=== PATIENT | female | born 1975 | race Caucasian/White ===

== ENCOUNTER 2020-10-05 18:29 | Inpatient (IN) | payer BC ==
[~2020-10-05] VITALS: Ht 165.1 cm; Wt 56.7 kg
--- NOTE | 2020-10-05 19:05 | NUR ---
Patient received in bed with at her side. AAOX4, calm and cooperative. In no acute distress. Complaining of abdominal discomforts, bloating sensation above the stoma, intermittent mild pain to right lower abdomen and constant tightning sensation to left lower. pain is 3/10. Denies any N/V/D. Stoma is red, clean and intact.
--- NOTE | 2020-10-05 19:15 | Emergency Room Report ---
History of Present Illness General Chief Complaint: General Complaint Source: Patient Present Illness HPI Disclaimer: Please note that this report is being documented using [employer] technology. This can lead to erroneous entry secondary to incorrect interpretation by the dictating instrument. HPI: Is a 44-year-old female history of ulcerative colitis status post total colectomy now with Eddy pouch presenting for difficulty with pouch. Unable to intubate pouch over the past 3 months. Worsening. Denies abdominal pain currently. Was able to intubate this morning. Tube appears to be getting kinked once passing and through the valve. Denies fever, chills, nausea, vomiting or other complaints at this time. Sent in for surgical evaluation. Originally placed at [facility] and then revised at [facility]. 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 EOMI. Cardiovascular: RRR. S1 and S2 normal. No murmur appreciated Resp: Normal work of breathing. No cough, wheezing or crackles appreciated Abdomen: Abdomen is soft, nondistended. Nontender Skin: Ostomy in the right lower quadrant is clean, no signs of surrounding erythema, edema or signs of infection. MSK: Normal tone and bulk. Moving all extremities. No obvious deformity. Neuro: Awake and alert. Mentating appropriately. Medical Decision Making Diagnostic Impression: Primary Impression: Ileostomy dysfunction ER Course Is a 44-year-old female presenting for evaluation of malfunctioning Eddy pouch. Patient will be admitted to with Dr. Shin surgical consult. Will obtain preop labs and CT. Patient stable. Laboratory Tests Test 10/05/20 19:12 10/05/20 20:10 10/06/20 07:25 10/07/20 03:45 White Blood Count 8.9 K/UL (4.8-10.8) 6.5 K/UL (4.8-10.8) 4.5 K/UL (4.8-10.8) L Red Blood Count 4.64 M/UL (4.20-5.40) 4.31 M/UL (4.20-5.40) 4.33 M/UL (4.20-5.40) Hemoglobin 15.4 G/DL (12.0-16.0) 14.2 G/DL (12.0-16.0) 14.1 G/DL (12.0-16.0) Hematocrit 47.5 % (37.0-47.0) H 42.7 % (37.0-47.0) 42.8 % (37.0-47.0) Mean Corpuscular Volume 102 FL (80-99) H 99 FL (80-99) 99 FL (80-99) Mean Corpuscular Hemoglobin 33.1 PG (27.0-31.0) H 33.0 PG (27.0-31.0) H 32.6 PG (27.0-31.0) H Mean Corpuscular Hemoglobin Concent 32.4 G/DL (32.0-36.0) 33.3 G/DL (32.0-36.0) 33.0 G/DL (32.0-36.0) Red Cell Distribution Width 13.0 % (11.6-14.8) 12.9 % (11.6-14.8) 12.7 % (11.6-14.8) Platelet Count 298 K/UL (150-450) 241 K/UL (150-450) 248 K/UL (150-450) Mean Platelet Volume 7.9 FL (6.5-10.1) 7.5 FL (6.5-10.1) 7.6 FL (6.5-10.1) Neutrophils (%) (Auto) 61.5 % (45.0-75.0) 69.1 % (45.0-75.0) 57.2 % (45.0-75.0) Lymphocytes (%) (Auto) 27.4 % (20.0-45.0) 18.3 % (20.0-45.0) L 28.9 % (20.0-45.0) Monocytes (%) (Auto) 9.0 % (1.0-10.0) 10.3 % (1.0-10.0) H 10.9 % (1.0-10.0) H Eosinophils (%) (Auto) 0.9 % (0.0-3.0) 0.8 % (0.0-3.0) 1.6 % (0.0-3.0) Basophils (%) (Auto) 1.3 % (0.0-2.0) 1.5 % (0.0-2.0) 1.4 % (0.0-2.0) Prothrombin Time 10.0 SEC (9.30-11.50) 10.7 SEC (9.30-11.50) Prothrombin Time INR 0.9 (0.9-1.1) 1.0 (0.9-1.1) Activated Partial Thromboplast Time 23 SEC (23-33) 27 SEC (23-33) Sodium Level 141 MMOL/L (136-145) 143 MMOL/L (136-145) 145 MMOL/L (136-145) Potassium Level 3.8 MMOL/L (3.5-5.1) 3.8 MMOL/L (3.5-5.1) 4.2 MMOL/L (3.5-5.1) Chloride Level 105 MMOL/L (98-107) 108 MMOL/L (98-107) H 111 MMOL/L (98-107) H Carbon Dioxide Level 29 MMOL/L (21-32) 24 MMOL/L (21-32) 26 MMOL/L (21-32) Anion Gap 7 mmol/L (5-15) 11 mmol/L (5-15) 8 mmol/L (5-15) Blood Urea Nitrogen 9 mg/dL (7-18) 5 mg/dL (7-18) L 3 mg/dL (7-18) L Creatinine 0.8 MG/DL (0.55-1.30) 0.7 MG/DL (0.55-1.30) 0.7 MG/DL (0.55-1.30) Estimated Glomerular Filtration Rate > 60 mL/min (>60) > 60 mL/min (>60) > 60 mL/min (>60) Glucose Level 98 MG/DL (74-106) 102 MG/DL (74-106) 88 MG/DL (74-106) Calcium Level 8.6 MG/DL (8.5-10.1) 8.5 MG/DL (8.5-10.1) 8.4 MG/DL (8.5-10.1) L Total Bilirubin 0.6 MG/DL (0.2-1.0) 0.6 MG/DL (0.2-1.0) 0.5 MG/DL (0.2-1.0) Aspartate Amino Transferase (AST) 13 U/L (15-37) L 13 U/L (15-37) L 16 U/L (15-37) Alanine Aminotransferase (ALT) 17 U/L (12-78) 17 U/L (12-78) 18 U/L (12-78) Alkaline Phosphatase 57 U/L (46-116) 48 U/L (46-116) 50 U/L (46-116) Troponin I 0.000 ng/mL (0.000-0.056) Total Protein 7.0 G/DL (6.4-8.2) 6.3 G/DL (6.4-8.2) L 6.4 G/DL (6.4-8.2) Albumin 3.9 G/DL (3.4-5.0) 3.5 G/DL (3.4-5.0) 3.5 G/DL (3.4-5.0) Globulin 3.1 g/dL 2.8 g/dL 2.9 g/dL Albumin/Globulin Ratio 1.3 (1.0-2.7) 1.2 (1.0-2.7) 1.2 (1.0-2.7) Hemoglobin A1c 5.2 % (4.3-6.0) Pro-B-Type Natriuretic Peptide 74 pg/mL (0-125) Triglycerides Level 76 MG/DL (30-150) Cholesterol Level 148 MG/DL (< 200) LDL Cholesterol 66 mg/dL (<100) HDL Cholesterol 70 MG/DL (40-60) H Cholesterol/HDL Ratio 2.1 (3.3-4.4) L Thyroid Stimulating Hormone (TSH) 2.440 uiU/mL (0.358-3.740) EKG Diagnostic Results Troponin ordered: Yes When was troponin ordered?: Oct 05, 2020 EKG Time: 19:07 Rate: normal Rhythm: NSR ST Segments: no acute changes Other Impression Sinus rhythm, normal axis, normal intervals, no ST segment changes Rhythm Strip Diag. Results Rhythm Strip Time: 19:07 EP Interpretation: yes Rate: 70s Rhythm: NSR, no PVC's, no ectopy Last Vital Signs Date Time Temp Pulse Resp B/P (MAP) Pulse Ox O2 Delivery O2 Flow Rate FiO2 10/05/20 18:37 98.1 75 16 120/87 (98) 99 Room Air Disposition: ADMITTED INPATIENT Condition: Stable Referrals: Jose Shin (PCP) Maikol Garcia MD Oct 05, 2020 19:15
[2020-10-05 19:23] LABS: BASOPHILS % (AUTO) 1.3 % (0.0-2.0); EOSINOPHILS % (AUTO) 0.9 % (0.0-3.0); HEMATOCRIT 47.5 % (37.0-47.0); HEMOGLOBIN 15.4 G/DL (12.0-16.0); LYMPHOCYTES % (AUTO) 27.4 % (20.0-45.0); MEAN CORPUSCULAR VOLUME 102 FL (80-99); NEUTROPHILS % (AUTO) 61.5 % (45.0-75.0); PLATELET COUNT 298 K/UL (150-450); RED BLOOD COUNT 4.64 M/UL (4.20-5.40); WHITE BLOOD COUNT 8.9 K/UL (4.8-10.8)
[2020-10-05 19:39] LABS: INR 0.9 (0.9-1.1)
[2020-10-05] MEDS ORDERED: Omnipaque-300 100ml vial INJ PRN (19:45)
[2020-10-05] MEDS ORDERED: HYDROMORPHONE HC2 M1 ORAL (19:51)
[2020-10-05] MEDS ORDERED: LORazepam 1mg tab ORAL PRN (20:00)
[2020-10-05] MEDS ORDERED: LORazepam Inj 2mg/ml 1ml IV ONE ×2 (20:00→21:45)
[2020-10-05] MEDS ORDERED: Morphine Sulfate 2mg/ml Inj(IV/IM USE ONLY) IVP PRN (20:00)
[2020-10-05] MEDS ORDERED: Mylanta II UD 30ml ORAL PRN (20:00)
--- NOTE | 2020-10-05 20:05 | Consultation ---
History of Present Illness General Date patient seen: Oct 05, 2020 Reason for Hospitalization: General Complaint Present Illness HPI This is a very pleasant 44-year-old female who presents with her to [facility] emergency department complaining of recent acute wors ening intubation of her Eddy pouch. Patient states 17 to 20 years ago she had a subtotal colectomy for what it was believed at that time to be colonic inertia with a ileorectal anastomosis which failed requiring a J-pouch which later required a diverting ostomy which continues to have issue who is leading to a APR and k-pouch creation. States this was done around 2013 and she has been well since with only few episodes of bowel obstructions throughout the years some requiring operation some treated nonoperatively. States she has been told she has gastroparesis and delayed gastric emptying as well along with delayed bowel transit. 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 She has been to multiple facilities throughout the years and has recently found our facility for evaluation of her recent pouch issues. States she is barely able to get the catheter and without some angulation the cause discomfort used to be able to sit down and intubate her pouch now has to lay flat and intubate her pouch. States few episodes where she can even intubate her pouch needs to take a break and intubate later currently intubated approximately 6 times a day. States the output is about 2 to 300 cc liquid output. Currently no nausea vomiting for the fever or chills. Allergies: Coded Allergies: DIPHENHYDRAMINE (Verified Allergy, Unknown, 10/05/20) GABAPENTIN (Verified Allergy, Unknown, 10/05/20) METOCLOPRAMIDE (Verified Allergy, Unknown, 10/05/20) ONDANSETRON (Verified Allergy, Unknown, 10/05/20) PROCHLORPERAZINE (Verified Allergy, Unknown, 10/05/20) COVID-19 Screening Contact w/high risk pt: No Experienced COVID-19 symptoms?: No Medication History Scheduled PRN Hydromorphone Hcl (Hydromorphone Hcl), 2 MG ORAL THREE TIMES A DAY PRN for For Pain, (Reported) Patient History History Provided By: Patient, Medical Record Healthcare decision maker Resuscitation status Advanced Directive on File Past Medical/Surgical History Past Medical/Surgical History: (1) Ileostomy dysfunction (2) Pouch malfunction Review of Systems Review of Symptoms General ROS: no weight loss or fever Psychological ROS: no depression or mood changes, no memory loss Ophthalmic ROS: no visual changes or eye irritation ENT ROS: no nasal congestion, hearing loss, dizziness Allergy and Immunology ROS: no allergic symptoms or urticaria Hematological and Lymphatic ROS: no swollen glands, unusual bleeding or bruising Endocrine ROS: no polyuria, polydipsia, weight changes, temperature intolerance Respiratory ROS: no cough, shortness of breath, or wheezing Cardiovascular ROS: no chest pain or dyspnea on exertion Gastrointestinal ROS: denies abdominal pain, bright red blood in stool. Musculoskeletal ROS: no myalgias or arthralgias Neurological ROS: no TIA or stroke symptoms Dermatological ROS: no new or changing skin lesions, rashes or pruritis Physical Exam Physical Exam General appearance: alert, cooperative, no distress, appears stated age Head: Normocephalic, without obvious abnormality, atraumatic Eyes: conjunctivae/corneas clear. PERRL, EOM's intact. Fundi benign Throat: Lips, mucosa, and tongue normal. Teeth and gums normal Neck: supple, symmetrical, trachea midline, no adenopathy, thyroid: not enlarged, symmetric, no tenderness/mass/nodules, no carotid bruit and no JVD Lungs: clear to auscultation bilaterally Heart: regular rate and rhythm, S1, S2 normal, no murmur, click, rub or gallop Abdomen: soft, non-tender. Bowel sounds normal. No masses, no organomegaly RLQ ostomy site Extremities: extremities normal, atraumatic, no cyanosis or edema Pulses: 2+ and symmetric Skin: Skin color, texture, turgor normal. No rashes or lesions Neurologic: Grossly normal Last 24 Hour Vital Signs Date Time Temp Pulse Resp B/P (MAP) Pulse Ox O2 Delivery O2 Flow Rate FiO2 10/05/20 18:37 98.1 75 16 120/87 (98) 99 Room Air Laboratory Tests Test 10/05/20 19:12 White Blood Count 8.9 K/UL (4.8-10.8) Red Blood Count 4.64 M/UL (4.20-5.40) Hemoglobin 15.4 G/DL (12.0-16.0) Hematocrit 47.5 % (37.0-47.0) H Mean Corpuscular Volume 102 FL (80-99) H Mean Corpuscular Hemoglobin 33.1 PG (27.0-31.0) H Mean Corpuscular Hemoglobin Concent 32.4 G/DL (32.0-36.0) Red Cell Distribution Width 13.0 % (11.6-14.8) Platelet Count 298 K/UL (150-450) Mean Platelet Volume 7.9 FL (6.5-10.1) Neutrophils (%) (Auto) 61.5 % (45.0-75.0) Lymphocytes (%) (Auto) 27.4 % (20.0-45.0) Monocytes (%) (Auto) 9.0 % (1.0-10.0) Eosinophils (%) (Auto) 0.9 % (0.0-3.0) Basophils (%) (Auto) 1.3 % (0.0-2.0) Prothrombin Time 10.0 SEC (9.30-11.50) Prothromb Time International Ratio 0.9 (0.9-1.1) Activated Partial Thromboplast Time 23 SEC (23-33) Sodium Level Pending Potassium Level Pending Chloride Level Pending Carbon Dioxide Level Pending Blood Urea Nitrogen Pending Creatinine Pending Estimat Glomerular Filtration Rate Pending Glucose Level Pending Calcium Level Pending Total Bilirubin Pending Aspartate Amino Transf (AST/SGOT) Pending Alanine Aminotransferase (ALT/SGPT) Pending Alkaline Phosphatase Pending Troponin I Pending Total Protein Pending Albumin Pending Globulin Pending Height (Feet): 5 Height (Inches): 5.00 Weight (Pounds): 125 Medications Current Medications Medications (Trade) Dose Ordered Sig/Kyler Route PRN Reason Start Time Stop Time Status Last Admin Dose Admin Barium Sulfate (Readi-Cat 2) 450 ml NOW PRN ORAL Radiology Procedure 10/05/20 19:45 10/07/20 19:44 Iohexol (OMNIPAQUE-300 100ml) 100 ml NOW PRN INJ Radiology Procedure 10/05/20 19:45 10/07/20 19:44 Assessment/Plan Problem List: (1) Ileostomy dysfunction Assessment & Plan: 44-year-old female with pouch dysfunction difficulty intubating her access segment. CT was reviewed mildly concerning given the slow transit as well as the significant contents of fecalith within the pouch. A catheter 28 Malaysian was inserted and left to gravity suction with flushings plan to do this over the course next 24 hours to evacuate the pouch. Once this is complete patient will need a endoscopy of the access segment of the pouch to ensure viability and availability of intubation so an emergency obstruction does not happen. Okay for clear liquid diet catheter in place flushing. A.m. KUB ordered. Will follow with recommendations. Thank you let me parts in patient's care ABDOMEN: Liver: Unremarkable. No mass. Gallbladder and bile ducts: Status post cholecystectomy. No ductal dilation. Pancreas: Unremarkable. No mass. No ductal dilation. Spleen: Unremarkable. No splenomegaly. Adrenals: Unremarkable. No mass. Kidneys and ureters: Unremarkable. No solid mass. No hydronephrosis. Stomach and bowel: There is area of distended bowel loop occupying nearly the entire pelvis. There are multiple surgical clips at this level and surrounding small bowel loops. There is a right-sided ostomy in place. There is a focus of swirling vessels with narrowing of bowel loops by the ostomy site suggestive of internal hernia or closed-loop obstruction. These reveal some degree of indentation into the large bowel loop occupying nearly the entire pelvis. There are additional bowel loops distended within the mid upper abdomen. No mucosal thickening. PELVIS: Appendix: No findings to suggest acute appendicitis. Bladder: Unremarkable. No mass. Reproductive: Unremarkable as visualized. ABDOMEN and PELVIS: Intraperitoneal space: Unremarkable. No free air. No significant fluid collection. Bones/joints: No acute fracture. No dislocation. Soft tissues: Unremarkable. Vasculature: Unremarkable. No abdominal aortic aneurysm. Lymph nodes: Unremarkable. No enlarged lymph nodes. IMPRESSION: 1. Right-sided ostomy with the suggestion of bowel obstruction likely near the ostomy site with suggestion of internal hernia or closed-loop obstruction along with cephalad bowel distention. Correlation with clinical presentation and type of surgery recommended. If indicated, follow-up with small bowel follow-through may help. 2. Unremarkable abdominal viscera. ICD Codes: K94.13 - Enterostomy malfunction SNOMED: [id number] (2) Pouch malfunction Jose Shin Oct 05, 2020 20:05
[2020-10-05 20:15] VITALS: BP 120/87
[2020-10-05 20:38] LABS: ANION GAP 7 mmol/L (5-15); BLOOD UREA NITROGEN 9 mg/dL (7-18); CALCIUM 8.6 MG/DL (8.5-10.1); CARBON DIOXIDE 29 MMOL/L (21-32); CHLORIDE 105 MMOL/L (98-107); CREATININE 0.8 MG/DL (0.55-1.30); POTASSIUM 3.8 MMOL/L (3.5-5.1); SODIUM 141 MMOL/L (136-145)
[2020-10-05 20:53] LABS: ALANINE AMINOTRANSFERASE 17 U/L (12-78); ALBUMIN 3.9 G/DL (3.4-5.0); ALBUMIN/GLOBULIN RATIO 1.3 (1.0-2.7); ALKALINE PHOSPHATASE 57 U/L (46-116); ASPARTATE AMINO TRANSFERASE 13 U/L (15-37); BILIRUBIN,TOTAL 0.6 MG/DL (0.2-1.0)
[2020-10-05] MEDS: D5NS 1,000 ML IV SCH (21:33)
[2020-10-05] MEDS ORDERED: LORazepam Inj 2mg/ml 1ml ONE (21:47)
--- NOTE | 2020-10-05 21:55 | NUR ---
ED Nurse Note: Patient left for CT, stable, accompanied by radialog[facility] personnel, left via wheelchair.
[2020-10-05] MEDS: Heparin 5000 units/ml inj SUBQ SCH (22:15)
--- NOTE | 2020-10-05 22:26 | Diagnostic Imaging Report ---
EXAM: CT Abdomen and Pelvis With Intravenous Contrast CLINICAL HISTORY: ABD PAIN TECHNIQUE: Axial computed tomography images of the abdomen and pelvis with intravenous contrast. CTDI is 3.7 mGy and DLP is 184.5 mGy-cm. One or more of the following dose reduction techniques were used: automated exposure control, adjustment of the mA and/or kV according to patient size, use of iterative reconstruction technique. COMPARISON: None. FINDINGS: Lung bases: Unremarkable. No mass. No consolidation. ABDOMEN: Liver: Unremarkable. No mass. Gallbladder and bile ducts: Status post cholecystectomy. No ductal dilation. Pancreas: Unremarkable. No mass. No ductal dilation. Spleen: Unremarkable. No splenomegaly. Adrenals: Unremarkable. No mass. Kidneys and ureters: Unremarkable. No solid mass. No hydronephrosis. Stomach and bowel: There is area of distended bowel loop occupying nearly the entire pelvis. There are multiple surgical clips at this level and surrounding small bowel loops. There is a right-sided ostomy in place. There is a focus of swirling vessels with narrowing of bowel loops by the ostomy site suggestive of internal hernia or closed-loop obstruction. These reveal some degree of indentation into the large bowel loop occupying nearly the entire pelvis. There are additional bowel loops distended within the mid upper abdomen. No mucosal thickening. PELVIS: Appendix: No findings to suggest acute appendicitis. Bladder: Unremarkable. No mass. Reproductive: Unremarkable as visualized. ABDOMEN and PELVIS: Intraperitoneal space: Unremarkable. No free air. No significant fluid collection. Bones/joints: No acute fracture. No dislocation. Soft tissues: Unremarkable. Vasculature: Unremarkable. No abdominal aortic aneurysm. Lymph nodes: Unremarkable. No enlarged lymph nodes. IMPRESSION: 1. Right-sided ostomy with the suggestion of bowel obstruction likely near the ostomy site with suggestion of internal hernia or closed-loop obstruction along with cephalad bowel distention. Correlation with clinical presentation and type of surgery recommended. If indicated, follow-up with small bowel follow-through may help. 2. Unremarkable abdominal viscera.
--- NOTE | 2020-10-05 22:31 | NUR ---
NURSE NOTES: Received telephone report from URIEL Acevedo (ED). Pt's room ready. Pt will be transferred to room soon.
--- NOTE | 2020-10-05 22:32 | NUR ---
ED Nurse Note: report given to Susan Thomas RN
--- NOTE | 2020-10-05 22:55 | NUR ---
NURSE NOTES: Received pt from ARYAN Garcia. Pt ambulatory, in bed, a&ox4, in room air, at bedside. No s/s of acute distress & c/o 7/10 abdominal pain at this time. Noted RLQ stoma. Pt self intubates. Skin intact. IV sites intact & S/L'd. Med-recon done. Dr. Shin already put in admission orders. Oriented pt to hospital room & facility. Pt belongings signed & accounted for. Plan of care discussed.
--- NOTE | 2020-10-05 23:06 | NUR ---
TRANSFER TO FLOOR: Patient transferred to [facility] as ordered, per ED Candido . Report given to ARYAN Thomas. Belongings and medications given to luz Concepcion, Family and or S/O present during transfer.
[2020-10-05 23:33] VITALS: BP 141/69
--- NOTE | 2020-10-05 23:37 | NUR ---
NURSE NOTES: Pt requesting for Morphine to be changed to Hydromorphone. Per pt, she has had adverse reactions with Morphine in the past. Informed Dr. Mcclellan and received new orders.
--- NOTE | 2020-10-06 00:04 | NUR ---
NURSE NOTES: Pt self-intubated with 's assistance. Ileo output 350 ml & brownish.
[2020-10-06 04:00] VITALS: BP 103/71
[2020-10-06] MEDS: Heparin 5000 units/ml inj SUBQ SCH ×3 (05:38→21:15)
[2020-10-06] MEDS: Hydromorphone 0.5mg/0.5ml inj IVP PRN ×3 (05:46→17:04)
--- NOTE | 2020-10-06 06:33 | NUR ---
NURSE HAND-OFF: Important Events on Shift:new admit, self intubates, iv hydration & pain management Patient Status: stable Diet: regular Pending Orders: Pending Results/Labs:pending covid-19 pcr Pending MD notification: Latest Vital Signs: Temperature 97.8 , Pulse 71 , B/P 103 /71 , Respiratory Rate 18 , O2 SAT 98 , Room Air, O2 Flow Rate . Vital Sign Comment: Latest Alva Fall Score: 35 Fall Risk: Medium Risk Safety Measures: Call light Within Reach, Bed Alarm , Side Rails Side Rails x2, Bed position Low and Locked. Fall Precautions: Patient Fall Education Report given to ARYAN Lundberg.
[2020-10-06 08:00] VITALS: BP 97/63
--- NOTE | 2020-10-06 08:44 | History and Physical Report ---
DATE OF ADMISSION: 10/05/2020 CHIEF COMPLAINT: Inability to cannulate Kock Pouch. HISTORY OF PRESENT ILLNESS: The patient is a 44-year-old female. She has an extensive past medical history, which includes history of ulcerative colitis. She underwent a total colectomy nearly 17 years ago. She has had multiple complications and surgeries several years ago. She recently had a Kock pouch placed. She has had intermittent episodes of blockages and actually had a revision done in 2017. She had been doing well until recently when she was unable to cannulate the ostomy site. She otherwise complains of chronic lower back pain, which she takes Dilaudid for. PAST MEDICAL HISTORY: As above. PAST SURGICAL HISTORY: As above. This include left leg ORIF, appendectomy, cholecystectomy, total abdominal hysterectomy, oophorectomy. CURRENT MEDICATIONS: Reconciled and reviewed. ALLERGIES: Include all nausea medications, Benadryl, Neurontin, and Lyrica. FAMILY HISTORY: Significant for ulcerative colitis. SOCIAL HISTORY: The patient drinks only wine. REVIEW OF SYSTEMS: GENERAL: No fevers or chills. HEENT: No headaches or visual changes. CARDIOPULMONARY: No chest pain or shortness of breath. GASTROINTESTINAL: No nausea or vomiting. Positive pain and cramping. GENITOURINARY: No urgency or frequency. MUSCULOSKELETAL: No joint pain or swelling. NEUROLOGIC: No history of seizures. PHYSICAL EXAMINATION: VITAL SIGNS: Temperature 98, blood pressure 110/76, pulse 80, respirations 20. GENERAL: The patient is a well-developed female, in no apparent distress. HEART: Regular rate and rhythm. LUNGS: Clear. ABDOMEN: Soft, nontender, nondistended. There is a small ostomy site in the right lower quadrant. There is no erythema or discharge. LABORATORY DATA: White count 9, hemoglobin 15, platelets are 298. Sodium 141, potassium 3.8. Coags are normal. CT scan of the abdomen shows right-sided ostomy with suggestion of bowel obstruction likely near the ostomy site with suggestion of internal hemorrhoid or closed-loop obstruction. ASSESSMENT: This is a pleasant female, history of ulcerative colitis, status post colectomy, admitted with inability to cannulate her ostomy, this may be due to a hernia or some type of obstruction. PLAN: NPO. IV fluids. Pain medications as needed. Surgical consultation is currently pending. The patient is stable for surgery if needed. Boston Calvo M.D. DR: TORREY JOB#: [id number] CC:
[2020-10-06 08:59] LABS: BASOPHILS % (AUTO) 1.5 % (0.0-2.0); EOSINOPHILS % (AUTO) 0.8 % (0.0-3.0); HEMATOCRIT 42.7 % (37.0-47.0); HEMOGLOBIN 14.2 G/DL (12.0-16.0); LYMPHOCYTES % (AUTO) 18.3 % (20.0-45.0); MEAN CORPUSCULAR VOLUME 99 FL (80-99); MONOCYTES % (AUTO) 10.3 % (1.0-10.0); NEUTROPHILS % (AUTO) 69.1 % (45.0-75.0); PLATELET COUNT 241 K/UL (150-450); RED BLOOD COUNT 4.31 M/UL (4.20-5.40); RED CELL DISTRIBUTION WIDTH 12.9 % (11.6-14.8); WHITE BLOOD COUNT 6.5 K/UL (4.8-10.8)
[2020-10-06 09:42] LABS: ALANINE AMINOTRANSFERASE 17 U/L (12-78); ALBUMIN 3.5 G/DL (3.4-5.0); ALBUMIN/GLOBULIN RATIO 1.2 (1.0-2.7); ALKALINE PHOSPHATASE 48 U/L (46-116); ANION GAP 11 mmol/L (5-15); ASPARTATE AMINO TRANSFERASE 13 U/L (15-37); BILIRUBIN,TOTAL 0.6 MG/DL (0.2-1.0); BLOOD UREA NITROGEN 5 mg/dL (7-18); CALCIUM 8.5 MG/DL (8.5-10.1); CARBON DIOXIDE 24 MMOL/L (21-32); CHLORIDE 108 MMOL/L (98-107); CHOLESTEROL 148 MG/DL (< 200); CREATININE 0.7 MG/DL (0.55-1.30); HDL CHOLESTEROL 70 MG/DL (40-60); POTASSIUM 3.8 MMOL/L (3.5-5.1); SODIUM 143 MMOL/L (136-145); TRIGLYCERIDES 76 MG/DL (30-150)
--- NOTE | 2020-10-06 10:43 | NUR ---
CASE MANAGEMENT:REVIEW 44 YR OLD FEMALE PRESENTED TO OUR ER PMH: ULCERATIVE COLITIS CC: UNABLE TO CANNULATE OSTOMY SI: ILEOSTOMY DYSFUNCTION 98.1 75 16 120/87 99% ON RA LABS ~ WNL IS: IV ATIVAN 1L NS BOLUS CT ABD/PELVIS : TO MED/SURG PLAN: SURGICAL CONSULT PAOLO GAONA
[2020-10-06 12:00] VITALS: BP 102/66
[2020-10-06 16:00] VITALS: BP 102/63
[2020-10-06] MEDS: D5NS 1,000 ML IV SCH (17:03)
--- NOTE | 2020-10-06 19:15 | NUR ---
NURSE NOTES: received pt from ARYAN Lundberg. pt alert and oriented x 4 with no acute s/s of distress and no co pain at the moment. IV site needs to be changed. will insert IV. Plan of care discussed. Ileo site patent and draining.
--- NOTE | 2020-10-06 19:46 | NUR ---
NURSE HAND-OFF: Important Events on Shift:[Ileo cath drainage to gravity. pain management, might have endoscopy tomorrow, NPO at midnight in case procedure scheduled. Swabbed covid.] Patient Status: [stable Diet: [clear liquid] Pending Orders: [] Pending Results/Labs:[] Pending MD notification:[] Latest Vital Signs: Temperature 98.0 , Pulse 63 , B/P 102 /63 , Respiratory Rate 18 , O2 SAT 98 , Room Air, O2 Flow Rate . Vital Sign Comment: [stable] Latest Alva Fall Score: 15 Fall Risk: Low Risk Safety Measures: Call light Within Reach, Bed Alarm Zone 1, Side Rails Side Rails x2, Bed position Low and Locked. Fall Precautions: Patient Fall Education Report given to [ARYAN Gracia].
[2020-10-06 20:00] VITALS: BP 123/70
[2020-10-07] VITALS: BP 113/72
--- NOTE | 2020-10-07 00:11 | NUR ---
NURSE NOTES: pt vital signs stable at this time, no acute s/s of distress, no co pain. ileo flushed with 50cc. pt now currently asleep.
[2020-10-07] MEDS: Hydromorphone 0.5mg/0.5ml inj IVP PRN ×4 (03:47→21:24)
[2020-10-07 04:00] VITALS: BP 132/79
--- NOTE | 2020-10-07 04:00 | NUR ---
NURSE NOTES: ileo flushed with 50cc. pt co pain 6/10, given ordered dilaudid prn. after blood draw pt felt nauseous and had 1 episode of emesis which was yellow in color. pt offered mylanta for stomach discomfort but pt claimed relief after vomiting. vital signs are stable, pt currently asleep. no other acute s/s of distress observed.
[2020-10-07 04:15] LABS: BASOPHILS % (AUTO) 1.4 % (0.0-2.0); EOSINOPHILS % (AUTO) 1.6 % (0.0-3.0); HEMATOCRIT 42.8 % (37.0-47.0); HEMOGLOBIN 14.1 G/DL (12.0-16.0); LYMPHOCYTES % (AUTO) 28.9 % (20.0-45.0); MEAN CORPUSCULAR VOLUME 99 FL (80-99); MONOCYTES % (AUTO) 10.9 % (1.0-10.0); NEUTROPHILS % (AUTO) 57.2 % (45.0-75.0); PLATELET COUNT 248 K/UL (150-450); RED BLOOD COUNT 4.33 M/UL (4.20-5.40); RED CELL DISTRIBUTION WIDTH 12.7 % (11.6-14.8); WHITE BLOOD COUNT 4.5 K/UL (4.8-10.8)
[2020-10-07 04:31] LABS: ALANINE AMINOTRANSFERASE 18 U/L (12-78); ALBUMIN 3.5 G/DL (3.4-5.0); ALBUMIN/GLOBULIN RATIO 1.2 (1.0-2.7); ALKALINE PHOSPHATASE 50 U/L (46-116); ANION GAP 8 mmol/L (5-15); ASPARTATE AMINO TRANSFERASE 16 U/L (15-37); BILIRUBIN,TOTAL 0.5 MG/DL (0.2-1.0); BLOOD UREA NITROGEN 3 mg/dL (7-18); CALCIUM 8.4 MG/DL (8.5-10.1); CARBON DIOXIDE 26 MMOL/L (21-32); CHLORIDE 111 MMOL/L (98-107); CREATININE 0.7 MG/DL (0.55-1.30); POTASSIUM 4.2 MMOL/L (3.5-5.1); SODIUM 145 MMOL/L (136-145)
[2020-10-07] MEDS: Heparin 5000 units/ml inj SUBQ SCH ×3 (06:15→21:16)
--- NOTE | 2020-10-07 06:52 | NUR ---
NURSE HAND-OFF: Important Events on Shift:Pain management, IV start, blood draw, x1 occurrence of emesis, pt relieved after vomiting Patient Status: stable Diet: NPO Pending Orders: NA Pending Results/Labs:NA Pending MD notification:NA Latest Vital Signs: Temperature 97.2 , Pulse 82 , B/P 132 /79 , Respiratory Rate 20 , O2 SAT 97 , Room Air, O2 Flow Rate . Vital Sign Comment: stable Latest Alva Fall Score: 15 Fall Risk: Low Risk Safety Measures: Call light Within Reach, Bed Alarm Zone 1, Side Rails Side Rails x2, Bed position Low and Locked. Fall Precautions: Patient Fall Education Report will be given to ARYAN Hannah.
--- NOTE | 2020-10-07 07:30 | NUR ---
NURSE NOTES: Patient lying in bed awake. Complain of pain 7/10 on abdominal area. Will administer pain medication as ordered. IV dressing intact and dry. Ileostomy catheter patent and draining well. Bed lowest position and side rails up. Call light within reach. Will continue to monitor.
[2020-10-07 08:00] VITALS: BP 142/67
--- NOTE | 2020-10-07 11:20 | NUR ---
NURSE NOTES: Seen by and new order received. Order read back and carried out.
--- NOTE | 2020-10-07 11:45 | NUR ---
NURSE NOTES: Spoke to regarding patient and new order receive. Order read back and carried out.
[2020-10-07 12:00] VITALS: BP 123/86
--- NOTE | 2020-10-07 13:24 | Surgery Progress Note ---
Surgery Progress Note Subjective Additional Comments Patient seen and examined bedside. No acute events. States she feels a little bit better. Pouch has been decompressing over the last 24 hours and is no long er thick sediment and now clear succus as anticipated. Tolerate clear liquid diets. Labs noted. Now the pouch is clearing up can proceed with endoscopy to appropriately visualize pouch access segment and valve. Unfortunately given the thickened sediment from prior not appropriate until now still needs a little bit more clearing we will schedule for tomorrow Objective Last 24 Hour Vital Signs Date Time Temp Pulse Resp B/P (MAP) Pulse Ox O2 Delivery O2 Flow Rate FiO2 10/07/20 12:00 97.8 73 17 123/86 (98) 97 10/07/20 09:00 Room Air 10/07/20 08:00 98.1 68 18 142/67 (92) 96 10/07/20 04:00 97.2 82 20 132/79 (96) 97 10/07/20 00:00 97.7 78 20 113/72 (86) 97 10/06/20 21:00 Room Air 10/06/20 20:00 97.2 74 20 123/70 (87) 96 10/06/20 17:34 98.0 10/06/20 16:00 97.8 63 18 102/63 (76) 98 I&O Intake and Output 10/06/20 10/07/20 19:00 07:00 Intake Total 1200 ml Output Total 310 ml Balance 890 ml Intake Oral 1200 ml Output Other 310 ml # Voids 5 Cardiovascular: RSR Respiratory: clear Abdomen: soft, flat, non-tender, present bowel sounds, other, non-distended Extremities: no edema, no tenderness, no cyanosis Laboratory Tests Test 10/07/20 03:45 White Blood Count 4.5 K/UL (4.8-10.8) L Red Blood Count 4.33 M/UL (4.20-5.40) Hemoglobin 14.1 G/DL (12.0-16.0) Hematocrit 42.8 % (37.0-47.0) Mean Corpuscular Volume 99 FL (80-99) Mean Corpuscular Hemoglobin 32.6 PG (27.0-31.0) H Mean Corpuscular Hemoglobin Concent 33.0 G/DL (32.0-36.0) Red Cell Distribution Width 12.7 % (11.6-14.8) Platelet Count 248 K/UL (150-450) Mean Platelet Volume 7.6 FL (6.5-10.1) Neutrophils (%) (Auto) 57.2 % (45.0-75.0) Lymphocytes (%) (Auto) 28.9 % (20.0-45.0) Monocytes (%) (Auto) 10.9 % (1.0-10.0) H Eosinophils (%) (Auto) 1.6 % (0.0-3.0) Basophils (%) (Auto) 1.4 % (0.0-2.0) Sodium Level 145 MMOL/L (136-145) Potassium Level 4.2 MMOL/L (3.5-5.1) Chloride Level 111 MMOL/L (98-107) H Carbon Dioxide Level 26 MMOL/L (21-32) Anion Gap 8 mmol/L (5-15) Blood Urea Nitrogen 3 mg/dL (7-18) L Creatinine 0.7 MG/DL (0.55-1.30) Estimat Glomerular Filtration Rate > 60 mL/min (>60) Glucose Level 88 MG/DL (74-106) Calcium Level 8.4 MG/DL (8.5-10.1) L Total Bilirubin 0.5 MG/DL (0.2-1.0) Aspartate Amino Transf (AST/SGOT) 16 U/L (15-37) Alanine Aminotransferase (ALT/SGPT) 18 U/L (12-78) Alkaline Phosphatase 50 U/L (46-116) Total Protein 6.4 G/DL (6.4-8.2) Albumin 3.5 G/DL (3.4-5.0) Globulin 2.9 g/dL Albumin/Globulin Ratio 1.2 (1.0-2.7) Plan Problems: (1) Ileostomy dysfunction Assessment & Plan: 44-year-old female with pouch dysfunction difficulty intubating her access segment. CT was reviewed mildly concerning given the slow transit as well as the significant contents of fecalith within the pouch. A catheter 28 Swedish was inserted and left to gravity suction with flushings plan to do this over the course next 24 hours to evacuate the pouch. Once this is complete patient will need a endoscopy of the access segment of the pouch to ensure viability and availability of intubation so an emergency obstruction does not happen. Okay for clear liquid diet catheter in place flushing. A.m. KUB ordered. Will follow with recommendations. Thank you let me parts in patient's care Labs noted doing better clearing up with flushing and catheter in place rather than intermittent intubations. Plan scope tomorrow N.p.o. past midnight ABDOMEN: Liver: Unremarkable. No mass. Gallbladder and bile ducts: Status post cholecystectomy. No ductal dilation. Pancreas: Unremarkable. No mass. No ductal dilation. Spleen: Unremarkable. No splenomegaly. Adrenals: Unremarkable. No mass. Kidneys and ureters: Unremarkable. No solid mass. No hydronephrosis. Stomach and bowel: There is area of distended bowel loop occupying nearly the entire pelvis. There are multiple surgical clips at this level and surrounding small bowel loops. There is a right-sided ostomy in place. There is a focus of swirling vessels with narrowing of bowel loops by the ostomy site suggestive of internal hernia or closed-loop obstruction. These reveal some degree of indentation into the large bowel loop occupying nearly the entire pelvis. There are additional bowel loops distended within the mid upper abdomen. No mucosal thickening. PELVIS: Appendix: No findings to suggest acute appendicitis. Bladder: Unremarkable. No mass. Reproductive: Unremarkable as visualized. ABDOMEN and PELVIS: Intraperitoneal space: Unremarkable. No free air. No significant fluid collection. Bones/joints: No acute fracture. No dislocation. Soft tissues: Unremarkable. Vasculature: Unremarkable. No abdominal aortic aneurysm. Lymph nodes: Unremarkable. No enlarged lymph nodes. IMPRESSION: 1. Right-sided ostomy with the suggestion of bowel obstruction likely near the ostomy site with suggestion of internal hernia or closed-loop obstruction along with cephalad bowel distention. Correlation with clinical presentation and type of surgery recommended. If indicated, follow-up with small bowel follow-through may help. 2. Unremarkable abdominal viscera. (2) Pouch malfunction Additional Comments Of note please note that patient was seen on 10/06/2020 unfortunately note was not saved and was discarded. Jose Shin Oct 07, 2020 13:24
[2020-10-07] MEDS: D5NS 1,000 ML IV SCH (13:47)
--- NOTE | 2020-10-07 13:48 | NUR ---
CASE MANAGEMENT:REVIEW 10/07/20 SI: ILEOSTOMY DYSFUNCTION POUCH MALFUNCTION 97.8 73 17 123/86 97% ON RA CA-8.4 IS:IV DILAUDID Q4HRS PRN HEPARIN SQ Q8HRS IV PEPCID Q12 IVF@50/HR : MED/SURG 4 EAST DCP: FROM HOME PLAN: ENDOSCOPY OF BOWEL IN AM
[2020-10-07 16:00] VITALS: BP 127/89
--- NOTE | 2020-10-07 16:35 | General Progress Note ---
Subjective ROS Limited/Unobtainable: No Constitutional: Reports: malaise, weakness HEENT: Reports: no symptoms Cardiovascular: Reports: no symptoms Respiratory: Reports: no symptoms Gastrointestinal/Abdominal: Reports: abdominal pain, nausea, vomiting Genitourinary: Reports: no symptoms Neurologic/Psychiatric: Reports: no symptoms Endocrine: Reports: no symptoms Hematologic/Lymphatic: Reports: no symptoms Allergies: Coded Allergies: DIPHENHYDRAMINE (Verified Allergy, Unknown, 10/05/20) GABAPENTIN (Verified Allergy, Unknown, 10/05/20) METOCLOPRAMIDE (Verified Allergy, Unknown, 10/05/20) ONDANSETRON (Verified Allergy, Unknown, 10/05/20) All Systems: reviewed and negative except above Subjective nausea and vomiting. stable chronic abd pain. no fevers or chills. surgery noted. Objective Last 24 Hour Vital Signs Date Time Temp Pulse Resp B/P (MAP) Pulse Ox O2 Delivery O2 Flow Rate FiO2 10/07/20 16:00 98.6 63 18 127/89 (102) 95 10/07/20 12:00 97.8 73 17 123/86 (98) 97 10/07/20 09:00 Room Air 10/07/20 08:00 98.1 68 18 142/67 (92) 96 10/07/20 04:00 97.2 82 20 132/79 (96) 97 10/07/20 00:00 97.7 78 20 113/72 (86) 97 10/06/20 21:00 Room Air 10/06/20 20:00 97.2 74 20 123/70 (87) 96 10/06/20 17:34 98.0 Intake and Output 10/06/20 10/07/20 19:00 07:00 Intake Total 1200 ml Output Total 310 ml Balance 890 ml Intake Oral 1200 ml Output Other 310 ml # Voids 5 Laboratory Tests 10/07/20 03:45: White Blood Count 4.5L, Red Blood Count 4.33, Hemoglobin 14.1, Hematocrit 42.8, Mean Corpuscular Volume 99, Mean Corpuscular Hemoglobin 32.6H, Mean Corpuscular Hemoglobin Concent 33.0, Red Cell Distribution Width 12.7, Platelet Count 248, Mean Platelet Volume 7.6, Neutrophils (%) (Auto) 57.2, Lymphocytes (%) (Auto) 28.9, Monocytes (%) (Auto) 10.9H, Eosinophils (%) (Auto) 1.6, Basophils (%) (Auto) 1.4, Sodium Level 145, Potassium Level 4.2, Chloride Level 111H, Carbon Dioxide Level 26, Anion Gap 8, Blood Urea Nitrogen 3L, Creatinine 0.7, Estimat Glomerular Filtration Rate > 60, Glucose Level 88, Calcium Level 8.4L, Total Bilirubin 0.5, Aspartate Amino Transf (AST/SGOT) 16, Alanine Aminotransferase (ALT/SGPT) 18, Alkaline Phosphatase 50, Total Protein 6.4, Albumin 3.5, Globulin 2.9, Albumin/Globulin Ratio 1.2 Height (Feet): 5 Height (Inches): 5.00 Weight (Pounds): 125 General Appearance: no apparent distress EENT: normal ENT inspection Neck: supple Cardiovascular: normal rate Respiratory/Chest: lungs clear Abdomen: normal bowel sounds, non tender, soft, no organomegaly Edema: no edema noted Arm (L), no edema noted Arm (R), no edema noted Leg (L), no edema noted Leg (R) Neurologic: fur plucker II-XII grossly normal, alert, oriented x 3 Assessment/Plan Problem List: (1) Abdominal pain ICD Codes: R10.9 - Unspecified abdominal pain SNOMED: 91778426 (2) Ulcerative colitis ICD Codes: K51.90 - Ulcerative colitis, unspecified, without complications SNOMED: 08287111 (3) Ileostomy dysfunction ICD Codes: K94.13 - Enterostomy malfunction SNOMED: 29837444 (4) Pouch malfunction Status: stable, not improved Assessment/Plan: NPO IVF pain rx as needed declines antiemetics because of adverse rxn or allergies. dvt/stress ulcer prophylaxis Boston Calvo MD Oct 07, 2020 16:35
--- NOTE | 2020-10-07 18:30 | NUR ---
NURSE NOTES: Patient complained nausea after drinking liquid diet. Spoke to regarding patient and NPO and increase IV fluid to 100ml. Order noted and carried out.
--- NOTE | 2020-10-07 19:30 | NUR ---
NURSE NOTES: Received report from ARYAN Hannah. Pt is A&Ox4 on room air. Pt has no nausea or complaints at this time. Side rails up x2, bed locked and in lowest position, call light within reach. Will continue to monitor.
--- NOTE | 2020-10-07 19:34 | NUR ---
NURSE HAND-OFF: Important Events on Shift:N/A Patient Status: Stable Diet: NPO Pending Orders: N/A Pending Results/Labs:N/A Pending MD notification:N/A Latest Vital Signs: Temperature 98.6 , Pulse 63 , B/P 127 /89 , Respiratory Rate 18 , O2 SAT 95 , Room Air, O2 Flow Rate . Vital Sign Comment: Stable Latest Alva Fall Score: 15 Fall Risk: Low Risk Safety Measures: Call light Within Reach, Bed Alarm Zone 1, Side Rails Side Rails x2, Bed position Low and Locked. Fall Precautions: Yellow Socks Door Sign Patient Fall Education Report given to Vernon BAEZA. Patient in stable condition.
[2020-10-07 20:00] VITALS: BP 116/79
[2020-10-08] VITALS (10 sets, daily range): BP systolic 105–133; BP diastolic 62–83
[2020-10-08] MEDS: D5NS 1,000 ML IV SCH ×2 (01:47→13:19)
[2020-10-08] MEDS: Hydromorphone 0.5mg/0.5ml inj IVP PRN ×4 (01:59→18:35)
[2020-10-08] MEDS: Heparin 5000 units/ml inj SUBQ SCH ×2 (05:44→13:27)
--- NOTE | 2020-10-08 07:00 | NUR ---
NURSE HAND-OFF: Important Events on Shift: Nausea subsided and pt was able to get some sleep Patient Status: calm Diet: NPO except ice chips and meds Pending Orders: Pending Results/Labs: Pending MD notification: Latest Vital Signs: Temperature 98.3 , Pulse 60 , B/P 105 /68 , Respiratory Rate 18 , O2 SAT 97 , Room Air, O2 Flow Rate . Vital Sign Comment: VSS Latest Alva Fall Score: 35 Fall Risk: Medium Risk Safety Measures: Call light Within Reach, Bed Alarm Zone 1, Side Rails Side Rails x2, Bed position Low and Locked. Fall Precautions: Yellow Socks Door Sign Patient Fall Education Report given to ARYAN Hannah.
--- NOTE | 2020-10-08 07:30 | NUR ---
NURSE NOTES: Patient lying in bed awake. Complain of pain 8/10 on abdominal area. Will administer pain medication as ordered. Ileostomy catheter patent and draining well. IV dressing intact and dry. Bed lowest position and side rails up. Call light within reach. Will continue to monitor.
--- NOTE | 2020-10-08 10:29 | Anethesia Preoperative Eval ---
Anesthesia Pre-op PMH/ROS General Date of Evaluation: Oct 08, 2020 Time of Evaluation: 11:51 Anesthesiologist: Loi ASA Score: ASA 2 Mallampati Score Class I : Soft palate, uvula, fauces, pillars visible Class II: Soft palate, uvula, fauces visible Class III: Soft palate, base of uvula visible Class IV: Only hard plate visible Mallampati Classification: Class II Surgeon: Thang Diagnosis: Malfunctionig Eddy Pouch Surgical Procedure: Endoscopy Pouch Anesthesia History: none Family History: no anesthesia problems Allergies: Coded Allergies: DIPHENHYDRAMINE (Verified Allergy, Unknown, 10/05/20) GABAPENTIN (Verified Allergy, Unknown, 10/05/20) METOCLOPRAMIDE (Verified Allergy, Unknown, 10/05/20) ONDANSETRON (Verified Allergy, Unknown, 10/05/20) Medications: see eMAR Patient NPO?: Yes Past Medical History Cardiovascular: Reports: HTN Gastrointestinal/Genitourinary: Reports: other - Ulceraive Colitis PSxH Narrative: Total Colectomy, Cholecystectomy, Appendectomy, Eddy Pouch, BSO Anesthesia Pre-op Phys. Exam Physician Exam Last Vital Signs Date Time Temp Pulse Resp B/P (MAP) Pulse Ox O2 Delivery O2 Flow Rate FiO2 10/08/20 08:00 98.2 73 18 126/76 (93) 96 10/07/20 21:00 Room Air Constitutional: NAD Neurologic: CN 2-12 intact Cardiovascular: RRR Respiratory: CTA Gastrointestinal: S/NT/ND Airway Exam Mallampati Score: Class II MO: full ROM: full Teeth: missing, intact Anesthesia Pre-op A/P Risk Assessment & Plan Assessment: ASA 2 Plan: GA Status Change Before Surgery: Darnell Solo MD Oct 08, 2020 10:29
--- NOTE | 2020-10-08 10:30 | 48 Hour Post Anesthesia Eval ---
Post Anesthesia Evaluation Procedure: Pouch Endoscopy Date of Evaluation: Oct 08, 2020 Time of Evaluation: 14:54 Blood Pressure Systolic: 113 0: 64 Pulse Rate: 74 Respiratory Rate: 18 Temperature (Fahrenheit): 98 O2 Sat by Pulse Oximetry: 100 Airway: patent Nausea: No Vomiting: No Pain Intensity: 2 Hydration Status: adequate Cardiopulmonary Status: Stable Mental Status/LOC: patient returned to baseline Follow-up Care/Observations: 0 Post-Anesthesia Complications: 0 Follow-up care needed: ready to discharge Darnell Monsivais MD Oct 08, 2020 10:30
--- NOTE | 2020-10-08 10:30 | Immediate Post-Op Evaluation ---
Immediate Post-Op Evalulation Immediate Post-Op Evalulation Procedure: Pouch Endoscopy Date of Evaluation: Oct 08, 2020 Time of Evaluation: 12:47 IV Fluids: 500 NS Blood Products: 0 Estimated Blood Loss: 2 Urinary Output: 0 Blood Pressure Systolic: 110 Blood Pressure Diastolic: 67 Pulse Rate: 76 Respiratory Rate: 18 O2 Sat by Pulse Oximetry: 100 Temperature (Fahrenheit): 97.6 Pain Score (1-10): 2 Nausea: No Vomiting: No Complications 0 Patient Status: awake, reacts, patent, none Hydration Status: adequate Darnell Monsivais MD Oct 08, 2020 10:30
--- NOTE | 2020-10-08 11:19 | NUR ---
CASE MANAGEMENT:REVIEW 10/08/20 SI: ILEOSTOMY DYSFUNCTION POUCH MALFUNCTION 98.2 73 18 126/76 96% ON RA IS:IV DILAUDID Q4HRS PRN HEPARIN SQ Q8HRS IV PEPCID Q12 IVF@50/HR : MED/SURG 4 EAST DCP: FROM HOME PLAN: POUCH ENDOSCOPY THIS AM
--- NOTE | 2020-10-08 11:50 | NUR ---
NURSE NOTES: Patient off unit for procedure in stable condition.
[2020-10-08] MEDS ORDERED: NS 500ML IVPB ONE (12:02)
--- NOTE | 2020-10-08 12:22 | General Progress Note ---
Subjective ROS Limited/Unobtainable: No Constitutional: Reports: malaise, weakness HEENT: Reports: no symptoms Cardiovascular: Reports: no symptoms Respiratory: Reports: no symptoms Gastrointestinal/Abdominal: Reports: abdominal pain, nausea, vomiting Genitourinary: Reports: no symptoms Neurologic/Psychiatric: Reports: no symptoms Endocrine: Reports: no symptoms Hematologic/Lymphatic: Reports: no symptoms Allergies: Coded Allergies: DIPHENHYDRAMINE (Verified Allergy, Unknown, 10/05/20) GABAPENTIN (Verified Allergy, Unknown, 10/05/20) METOCLOPRAMIDE (Verified Allergy, Unknown, 10/05/20) ONDANSETRON (Verified Allergy, Unknown, 10/05/20) All Systems: reviewed and negative except above Subjective npo. nausea better this am. on ivf. no chest pain or sob. no fevers Objective Last 24 Hour Vital Signs Date Time Temp Pulse Resp B/P (MAP) Pulse Ox O2 Delivery O2 Flow Rate FiO2 10/08/20 09:00 Room Air 10/08/20 08:00 98.2 73 18 126/76 (93) 96 10/08/20 04:00 98.3 60 18 105/68 (80) 97 10/08/20 00:00 98.6 64 18 107/70 (82) 97 10/07/20 21:00 Room Air 10/07/20 20:00 98.8 70 18 116/79 (91) 97 10/07/20 16:00 98.6 63 18 127/89 (102) 95 Intake and Output 10/07/20 10/08/20 19:00 07:00 Intake Total 1258 ml Output Total 470 ml 400 ml Balance 788 ml -400 ml Intake Oral 1258 ml Output Urine Total 350 ml 400 ml Other 120 ml # Voids 1 Height (Feet): 5 Height (Inches): 5.00 Weight (Pounds): 125 Objective General Appearance: no apparent distress EENT: normal ENT inspection Neck: supple Cardiovascular: normal rate Respiratory/Chest: lungs clear Abdomen: normal bowel sounds, non tender, soft, no organomegaly Edema: no edema noted Arm (L), no edema noted Arm (R), no edema noted Leg (L), no edema noted Leg (R) Neurologic: partner integration planner II-XII grossly normal, alert, oriented x 3 Assessment/Plan Problem List: (1) Abdominal pain ICD Codes: R10.9 - Unspecified abdominal pain SNOMED: 46809532 (2) Ulcerative colitis ICD Codes: K51.90 - Ulcerative colitis, unspecified, without complications SNOMED: 07972356 (3) Ileostomy dysfunction ICD Codes: K94.13 - Enterostomy malfunction SNOMED: 47920172 (4) Pouch malfunction Status: stable, not improved Assessment/Plan: NPO IVF pain rx as needed declines antiemetics because of adverse rxn or allergies. dvt/stress ulcer prophylaxis endoscopy today Boston Calvo MD Oct 08, 2020 12:22
[2020-10-08] MEDS ORDERED: MULTIVITAMINS1 EAC2 ORAL (14:06)
--- NOTE | 2020-10-08 14:20 | NUR ---
NURSE NOTES: Spoke to regarding patient and new order received. Order read back and carried out.
--- NOTE | 2020-10-08 15:00 | NUR ---
NURSE NOTES: Patient came back from procedure in stable condition. Ileostomy catheter patent.
--- NOTE | 2020-10-08 15:21 | NUR ---
RADIOLOGY DEPT., [facility] POUCHOGRAM COMPLETED.-P.DYE
--- NOTE | 2020-10-08 15:22 | Cardiology Report ---
APPROVED REPORT EKG Measurement Heart [id number] <Conclusion> Normal sinus rhythm Normal ECG
--- NOTE | 2020-10-08 18:29 | Surgery Progress Note ---
Surgery Progress Note Subjective Procedure Performed pouch endoscopy Symptoms: improved, tolerating diet, voiding well Objective Last 24 Hour Vital Signs Date Time Temp Pulse Resp B/P (MAP) Pulse Ox O2 Delivery O2 Flow Rate FiO2 10/08/20 16:00 98.0 71 20 111/78 (89) 98 10/08/20 12:47 77 16 115/80 98 Room Air 10/08/20 12:42 79 16 106/79 98 Room Air 10/08/20 12:40 74 18 100 10/08/20 12:39 76 18 100 10/08/20 12:37 77 16 111/81 98 Simple Mask 6 10/08/20 12:32 97.2 81 16 113/81 98 Simple Mask 6 10/08/20 12:00 98.3 71 20 133/83 (100) 98 10/08/20 09:00 Room Air 10/08/20 08:00 98.2 73 18 126/76 (93) 96 10/08/20 04:00 98.3 60 18 105/68 (80) 97 10/08/20 00:00 98.6 64 18 107/70 (82) 97 10/07/20 21:00 Room Air 10/07/20 20:00 98.8 70 18 116/79 (91) 97 I&O Intake and Output 10/07/20 10/08/20 19:00 07:00 Intake Total 1258 ml Output Total 470 ml 400 ml Balance 788 ml -400 ml Intake Oral 1258 ml Output Urine Total 350 ml 400 ml Other 120 ml # Voids 1 Cardiovascular: RSR Respiratory: clear Abdomen: soft, flat, non-tender, present bowel sounds, non-distended Extremities: no edema, no tenderness, no cyanosis Plan Problems: (1) Ileostomy dysfunction Assessment & Plan: 44-year-old female with pouch dysfunction difficulty intubating her access segment. CT was reviewed mildly concerning given the slow transit as well as the significant contents of fecalith within the pouch. A catheter 28 Urdu was inserted and left to gravity suction with flushings plan to do this over the course next 24 hours to evacuate the pouch. Once this is complete patient will need a endoscopy of the access segment of the pouch to ensure viability and availability of intubation so an emergency obstruction does not happen. Okay for clear liquid diet catheter in place flushing. A.m. KUB ordered. Will follow with recommendations. Thank you let me parts in patient's care Labs noted doing better clearing up with flushing and catheter in place rather than intermittent intubations. Plan scope tomorrow N.p.o. past midnight pouch endo keep drain in d/c planning ABDOMEN: Liver: Unremarkable. No mass. Gallbladder and bile ducts: Status post cholecystectomy. No ductal dilation. Pancreas: Unremarkable. No mass. No ductal dilation. Spleen: Unremarkable. No splenomegaly. Adrenals: Unremarkable. No mass. Kidneys and ureters: Unremarkable. No solid mass. No hydronephrosis. Stomach and bowel: There is area of distended bowel loop occupying nearly the entire pelvis. There are multiple surgical clips at this level and surrounding small bowel loops. There is a right-sided ostomy in place. There is a focus of swirling vessels with narrowing of bowel loops by the ostomy site suggestive of internal hernia or closed-loop obstruction. These reveal some degree of indentation into the large bowel loop occupying nearly the entire pelvis. There are additional bowel loops distended within the mid upper abdomen. No mucosal thickening. PELVIS: Appendix: No findings to suggest acute appendicitis. Bladder: Unremarkable. No mass. Reproductive: Unremarkable as visualized. ABDOMEN and PELVIS: Intraperitoneal space: Unremarkable. No free air. No significant fluid collection. Bones/joints: No acute fracture. No dislocation. Soft tissues: Unremarkable. Vasculature: Unremarkable. No abdominal aortic aneurysm. Lymph nodes: Unremarkable. No enlarged lymph nodes. IMPRESSION: 1. Right-sided ostomy with the suggestion of bowel obstruction likely near the ostomy site with suggestion of internal hernia or closed-loop obstruction along with cephalad bowel distention. Correlation with clinical presentation and type of surgery recommended. If indicated, follow-up with small bowel follow-through may help. 2. Unremarkable abdominal viscera. (2) Pouch malfunction Jose Shin Oct 08, 2020 18:29
--- NOTE | 2020-10-08 18:29 | Brief Operative Note ---
Immediate Post Operative Note Operative Note Pre-op Diagnosis: pouch dysfunction, difficult intubation of K pouch Procedure: pouch endoscopy Post-op Diagnosis: same as pre-op plus Surgeon: rolando shin md Assistant Professor Of History: veronica thomas Anesthesia: moderate sedation Specimen: none Complications: none Condition: stable Fluids: see Estimated Blood Loss: none Drains: none Implant(s) used?: No Rolando Shin Oct 08, 2020 18:28
--- NOTE | 2020-10-08 19:10 | NUR ---
NURSE NOTES: Received report from ARYAN Hannah. Pt is in bed with no complaints of pain and in no distress with no N/V. Pt is able to tolerate a regular diet. Pt has no needs as of right now. Call light within reach, bed locked and in lowest position, side rails up x2. Will continue to monitor.
--- NOTE | 2020-10-08 19:28 | Diagnostic Imaging Report ---
Indication: Abdominal pain Technique: And fluoroscopic guidance, contrast injected into continent ileostomy pouch via a pre-existing Staley catheter. Serial spot and saved fluoroscopic images were obtained Comparison: none Findings: Pouch fills easily with contrast, is somewhat capacious. Contrast refluxes reasonably readily into dilated distal small bowel entering the pouch. The anastomosis with the pouch and small bowel is in the upper right portion of the pouch, near the base of the nipple. A considerable amount of contrast was eventually refluxed. The pouch was then drained, and most of the contrast in the small bowel proximally drained as well. Impression: No evidence of obstruction at the small bowel to continent ileostomy pouch anastomosis or in the distal small bowel. Note that the distal small bowel is dilated, however. Per discussion with referring physician, this may be related to recent endoscopy
--- NOTE | 2020-10-08 19:30 | NUR ---
NURSE HAND-OFF: Important Events on Shift: Endoscopy and pouchogram today Patient Status: Stable Diet: Regular diet Pending Orders: N/A Pending Results/Labs:N/A Pending MD notification:N/a Latest Vital Signs: Temperature 98.0 , Pulse 71 , B/P 111 /78 , Respiratory Rate 20 , O2 SAT 98 , Room Air, O2 Flow Rate 6 . Vital Sign Comment: Stable Latest Alva Fall Score: 35 Fall Risk: Medium Risk Safety Measures: Call light Within Reach, Bed Alarm Zone 1, Side Rails Side Rails x2, Bed position Low and Locked. Fall Precautions: Yellow Socks Door Sign Patient Fall Education Report given to Vernon BAEZA. Patient in stable condition.
[2020-10-09] VITALS: BP 104/65
[2020-10-09] MEDS: Hydromorphone 0.5mg/0.5ml inj IVP PRN ×2 (03:02→08:04)
[2020-10-09 04:00] VITALS: BP 96/61
--- NOTE | 2020-10-09 07:15 | NUR ---
NURSE HAND-OFF: Important Events on Shift: ileostomy catheter came out and pt was able to reinsert a new one Patient Status: calm Diet: regular Pending Orders: Pending Results/Labs: Pending MD notification: Latest Vital Signs: Temperature 98.9 , Pulse 73 , B/P 96 /61 , Respiratory Rate 18 , O2 SAT 98 , Room Air, O2 Flow Rate 6 . Vital Sign Comment: VSS Latest Alva Fall Score: 35 Fall Risk: Medium Risk Safety Measures: Call light Within Reach, Bed Alarm Zone 1, Side Rails Side Rails x2, Bed position Low and Locked. Fall Precautions: Yellow Socks Door Sign Patient Fall Education Report given to ARYAN Ch.
--- NOTE | 2020-10-09 07:25 | NUR ---
NURSE NOTES: Handoff received from Shukri BAEZA. Patient is awake and alert, no acute signs of distress noted. Patient is reporting pain 7/10, will medicate as ordered. Patient states that she feels her ileo catheter may be clogged because she tried to eat a bit of sauerkraut. Left forearm IV is intact and saline locked. Bed is low and locked, side rails up x2, call light is within reach. RN will flush catheter with her AM medications.
[2020-10-09 08:00] VITALS: BP 101/67
--- NOTE | 2020-10-09 11:21 | General Progress Note ---
Subjective ROS Limited/Unobtainable: No Constitutional: Reports: malaise, weakness HEENT: Reports: no symptoms Cardiovascular: Reports: no symptoms Respiratory: Reports: no symptoms Gastrointestinal/Abdominal: Reports: abdominal pain, nausea Genitourinary: Reports: no symptoms Neurologic/Psychiatric: Reports: no symptoms Endocrine: Reports: no symptoms Hematologic/Lymphatic: Reports: no symptoms Allergies: Coded Allergies: DIPHENHYDRAMINE (Verified Allergy, Unknown, 10/05/20) GABAPENTIN (Verified Allergy, Unknown, 10/05/20) METOCLOPRAMIDE (Verified Allergy, Unknown, 10/05/20) ONDANSETRON (Verified Allergy, Unknown, 10/05/20) All Systems: reviewed and negative except above Subjective no new complaints. decreased abd pain and nausea. no fever or chills. no sob Objective Last 24 Hour Vital Signs Date Time Temp Pulse Resp B/P (MAP) Pulse Ox O2 Delivery O2 Flow Rate FiO2 10/09/20 09:00 Room Air 10/09/20 08:34 98.9 10/09/20 08:00 97.8 72 18 101/67 (78) 98 10/09/20 04:00 98.9 73 18 96/61 (73) 98 10/09/20 00:00 98.6 79 18 104/65 (78) 98 10/08/20 21:00 Room Air 10/08/20 20:00 98.8 85 18 110/62 (78) 98 10/08/20 16:00 98.0 71 20 111/78 (89) 98 10/08/20 12:47 77 16 115/80 98 Room Air 10/08/20 12:42 79 16 106/79 98 Room Air 10/08/20 12:40 74 18 100 10/08/20 12:39 76 18 100 10/08/20 12:37 77 16 111/81 98 Simple Mask 6 10/08/20 12:32 97.2 81 16 113/81 98 Simple Mask 6 10/08/20 12:00 98.3 71 20 133/83 (100) 98 Intake and Output 10/08/20 10/09/20 19:00 07:00 Intake Total 720 ml Output Total 1560 ml 400 ml Balance -840 ml -400 ml Intake Oral 720 ml Output Urine Total 720 ml 400 ml Other 840 ml # Voids 2 Height (Feet): 5 Height (Inches): 5.00 Weight (Pounds): 125 Objective General Appearance: no apparent distress EENT: normal ENT inspection Neck: supple Cardiovascular: normal rate Respiratory/Chest: lungs clear Abdomen: normal bowel sounds, non tender, soft, no organomegaly Edema: no edema noted Arm (L), no edema noted Arm (R), no edema noted Leg (L), no edema noted Leg (R) Neurologic: operating systems specialist II-XII grossly normal, alert, oriented x 3 Assessment/Plan Problem List: (1) Abdominal pain ICD Codes: R10.9 - Unspecified abdominal pain SNOMED: 63386370 (2) Ulcerative colitis ICD Codes: K51.90 - Ulcerative colitis, unspecified, without complications SNOMED: 76728886 (3) Ileostomy dysfunction ICD Codes: K94.13 - Enterostomy malfunction SNOMED: 60259423 (4) Pouch malfunction Status: stable, not improved Assessment/Plan: clears IVF pain rx as needed declines antiemetics because of adverse rxn or allergies. dvt/stress ulcer prophylaxis poc per surgery Boston Calvo MD Oct 09, 2020 11:21
--- NOTE | 2020-10-09 11:30 | NUR ---
NURSE NOTES: Discharge supplies and education given, patient verbalized understanding.
[2020-10-09 11:46] VITALS: BP 105/71
--- NOTE | 2020-10-09 12:08 | Surgery Progress Note ---
Surgery Progress Note Subjective Procedure Performed pouch endoscopy Symptoms: improved, tolerating diet, voiding well Objective Last 24 Hour Vital Signs Date Time Temp Pulse Resp B/P (MAP) Pulse Ox O2 Delivery O2 Flow Rate FiO2 10/09/20 11:46 98.6 66 18 105/71 (82) 99 10/09/20 09:00 Room Air 10/09/20 08:34 98.9 10/09/20 08:00 97.8 72 18 101/67 (78) 98 10/09/20 04:00 98.9 73 18 96/61 (73) 98 10/09/20 00:00 98.6 79 18 104/65 (78) 98 10/08/20 21:00 Room Air 10/08/20 20:00 98.8 85 18 110/62 (78) 98 10/08/20 16:00 98.0 71 20 111/78 (89) 98 10/08/20 12:47 77 16 115/80 98 Room Air 10/08/20 12:42 79 16 106/79 98 Room Air 10/08/20 12:40 74 18 100 10/08/20 12:39 76 18 100 10/08/20 12:37 77 16 111/81 98 Simple Mask 6 10/08/20 12:32 97.2 81 16 113/81 98 Simple Mask 6 I&O Intake and Output 10/08/20 10/09/20 19:00 07:00 Intake Total 720 ml Output Total 1560 ml 400 ml Balance -840 ml -400 ml Intake Oral 720 ml Output Urine Total 720 ml 400 ml Other 840 ml # Voids 2 Cardiovascular: RSR Respiratory: clear Abdomen: soft, flat, non-tender, present bowel sounds, non-distended Extremities: no edema, no tenderness, no cyanosis Plan Problems: (1) Ileostomy dysfunction Assessment & Plan: 44-year-old female with pouch dysfunction difficulty intubating her access segment. CT was reviewed mildly concerning given the slow transit as well as the significant contents of fecalith within the pouch. A catheter 28 Ukrainian was inserted and left to gravity suction with flushings plan to do this over the course next 24 hours to evacuate the pouch. Once this is complete patient will need a endoscopy of the access segment of the pouch to e nsure viability and availability of intubation so an emergency obstruction does not happen. Okay for clear liquid diet catheter in place flushing. A.m. KUB ordered. Will follow with recommendations. Thank you let me parts in patient's care Labs noted doing better clearing up with flushing and catheter in place rather than intermittent intubations. Plan scope tomorrow N.p.o. past midnight pouch endo keep drain in d/c planning pouch scopy was completed and the results were discussed with the patient in detail. There is a hypertrophic polyp versus traumatic lesion identified in the valve segment of the access. This is distal about 8 cm proximally 2 cm from the valve entry into the pouch. Given this finding a catheter was placed into the pouch and to be left in place for approximately 2 weeks. She can be in either catheter plug or catheter drainage bag as patient desires with the goal of being able to not intubate for 2 weeks with the past catheter in place if this is a traumatic lesion erythema erythema it may subside and she can resume normal intubations. If not she will need surveillance of this polyp with potential resection given that the polyp is in the bowel segment of the access it is very difficult and will require either high complex endoscopic resection versus laparotomy given its location. Patient expressed understanding. Will be discharged today on normal diet with catheter in place. Patient has supplies are given to her. Patient will follow up with me in 2 weeks and considerations of repeat scope in 6 weeks to 6 months. Thank you fine participation care ABDOMEN: Liver: Unremarkable. No mass. Gallbladder and bile ducts: Status post cholecystectomy. No ductal dilation. Pancreas: Unremarkable. No mass. No ductal dilation. Spleen: Unremarkable. No splenomegaly. Adrenals: Unremarkable. No mass. Kidneys and ureters: Unremarkable. No solid mass. No hydronephrosis. Stomach and bowel: There is area of distended bowel loop occupying nearly the entire pelvis. There are multiple surgical clips at this level and surrounding small bowel loops. There is a right-sided ostomy in place. There is a focus of swirling vessels with narrowing of bowel loops by the ostomy site suggestive of internal hernia or closed-loop obstruction. These reveal some degree of indentation into the large bowel loop occupying nearly the entire pelvis. There are additional bowel loops distended within the mid upper abdomen. No mucosal thickening. PELVIS: Appendix: No findings to suggest acute appendicitis. Bladder: Unremarkable. No mass. Reproductive: Unremarkable as visualized. ABDOMEN and PELVIS: Intraperitoneal space: Unremarkable. No free air. No significant fluid collection. Bones/joints: No acute fracture. No dislocation. Soft tissues: Unremarkable. Vasculature: Unremarkable. No abdominal aortic aneurysm. Lymph nodes: Unremarkable. No enlarged lymph nodes. IMPRESSION: 1. Right-sided ostomy with the suggestion of bowel obstruction likely near the ostomy site with suggestion of internal hernia or closed-loop obstruction along with cephalad bowel distention. Correlation with clinical presentation and type of surgery recommended. If indicated, follow-up with small bowel follow-through may help. 2. Unremarkable abdominal viscera. (2) Pouch malfunction Jose Shin Oct 09, 2020 12:08
--- NOTE | 2020-10-09 13:00 | NUR ---
NURSE NOTES: Patient safely discharged from [facility] to home via private vehicle. Patient provided with discharge supplies and education. Belongings list verified and signed. Questions were answered and patient information packet provided. IV and ID wristband removed.
--- NOTE | 2020-10-09 17:29 | Operative Note - Dictated ---
DATE OF OPERATION: 10/09/2020 PREOPERATIVE DIAGNOSIS: Pouch malfunction with difficulty intubating into Kock pouch. POSTOPERATIVE DIAGNOSIS: Pouch malfunction with difficulty intubating into Kock pouch. OPERATION PERFORMED: Pouch endoscopy with retroflexion and evaluation. ATTENDING SURGEON: Jose Shin MD. PUMP SERVICE SUPERVISOR: Timi Sutton MD. ANESTHESIOLOGIST: Darnell Monsivais MD. ANESTHESIA: Sedation. ESTIMATED BLOOD LOSS: Minimal. IV FLUIDS: Please see anesthesia records. COMPLICATIONS: None. DRAINS: None. COUNTS: Sponge and needle counts correct x2. WOUND CLASSIFICATION: Class 3. INDICATIONS FOR PROCEDURE: This is a 44-year-old female who has a Kock pouch that was created at an outside facility, [facility], and has been doing well, but recently identified to have some difficulty intubating into her Kock pouch with concerns of access or valve segment insufficiency, complication. No leak noted. She has come urgently to [facility] for evaluation with concerns and fears that she may not be able to intubate properly and may have an emergency obstruction or complication of her access segment of valve. She has consented to pouch endoscopy for evaluation of her valve and access segment. OPERATIVE NOTE: The patient was taken to the GI suite, laid comfortable in the supine position. Anesthesia, moderate sedation was provided by the anesthesiologist while the patient was monitored appropriately. The right lower quadrant ostomy was noted. On the external aspect, it was a very clean-looking ostomy access segment, approximately 1 cm x 7 cm without erythema, induration, prolapse, or incontinence. The pediatric endoscope was lubricated and gently inserted through the opening and the access segment of the valve was identified with good pink mucosa, no complications. Entry from the access segment into the valve portion of the access segment was identified and a potential, which seemed to be traumatic lesion at first, hypertrophic polyp was identified within the access segment valve portion approximately 2 cm from the entrance into the pouch at the distal aspect of the valve access segment. It was a hypertrophic lesion potentially from trauma with erythema and a wide base, which was not fully obstructive, but was clearly noted and with a little bit of resistance while getting around it. Once the scope was inserted into the pouch, the pouch was evaluated, distended, and only minimal residual noted. The pouch did not have significant erythema or pouchitis by any means. The apex of the pouch and pouch mucosa were otherwise healthy, viable without complication. The scope was retroflexed, and at this time a very healthy viable access segment valve was identified. The valve was approximately 5 cm to 6 cm in length, healthy, tethered to the pouch wall without complication and with good wide opening. segment was identified to the right of the valve, but could not be intubated given its location, but no abnormalities, strictures, or complication of that portion identified. At this time, we decompressed the pouch gently, withdrew the scope out of the Kock pouch into the valve segment, which again we identified this lesion. The scope was removed. No complications from the procedure were noted. A 28-Slovenian Staley was inserted and the patient placed to a leg bag. Jose Shin M.D. DR: HENOK JOB#: [id number] CC:
--- NOTE | 2020-10-12 15:44 | Discharge Summary ---
Discharge Summary Discharge Summary _ Date of admission: 10/05/2020 Date of discharge: 10/09/[address] Calvo History of Present Illness and Brief Hospital Course Ms. Concepcion is a 44-year-old female with past medical history of ulcerative colitis status post total colectomy with Eddy pouch who presented to the ED due to difficulty intubating. Patient was unable to intubate pouch over the past 3 months. The tube appeared to be getting kinked once passing in through the valve. Patient denied abdominal pain, fever, chills, nausea, vomiting or any other complaints. The CT of abdomen/pelvis revealed a right-sided ostomy with a suggestion of bowel obstruction likely near the ostomy site with suggestion of internal hernia or closed loop obstruction along with cephalad bowel distention. Patient underwent pouch endoscopy with retroflexion and evaluation. Patient tolerated the procedure well and was closely monitored afterwards. Patient began and tolerating diet. Patient was medically stable and was discharged home on 10/09/2020. Consultants: Surgery Dr. Shin Discharge Condition Improved and stable Final diagnoses Abdominal pain History of ulcerative colitis Ileostomy dysfunction Pouch malfunction I have been assigned to dictate discharge summary for this account. I was not involved in the patient's management Kevin Nails Oct 12, 2020 15:44
== END 2020-10-09 13:00 | disposition home or self-care (01) | DRG 394 ==
LOC: EMR 19:07 → EDBEDREQ 20:33 → 4E 20:44
PROC: 0DJD8ZZ Inspection of Lower Intestinal Tract, Via Natural or Artificial Opening Endoscopic (ICD-10-PCS; principal; 2020-10-09)
DX: K94.13 Enterostomy malfunction (principal); K91.858 Other complications of intestinal pouch; Z87.19 Personal history of other diseases of the digestive system; Y83.3 Surgical operation with formation of external stoma as the cause of abnormal reaction of the patient, or of later complication, without mention of misadventure at the time of the procedure; R10.9 Unspecified abdominal pain; Z88.6 Allergy status to analgesic agent; Z88.8 Allergy status to other drugs, medicaments and biological substances
CPT/HCPCS: 36415; 74177; 74270; 80053; 80061; 83036; 83880; 84443; 84484; 85025; 85610; 85730; 86850; 86900; 86901; 93005; 94003; 94150; 99285